=== PATIENT | male | born 1965 | race Two or more races ===

== ENCOUNTER 2020-10-02 14:45 | Inpatient (IN) | payer OTHER ==
[2020-10-02 15:36] VITALS: BMI 26.7
[2020-10-02] MEDS ORDERED: MAG HYDROX/AL HYDROX/SIMETH 30 ML UNIT-DOSE CUP PO PRN (19:19)
[2020-10-02] MEDS ORDERED: MAGNESIUM CITRATE 300 ML BOTTLE PO PRN (19:19)
[2020-10-02] MEDS ORDERED: MAGNESIUM HYDROX 2400MG/30ML ORAL SUSPENSION 30 ML CUP PO PRN (19:19)
[2020-10-02] MEDS ORDERED: ACETAMINOPHEN 325 MG TABLET (FP) PO PRN ×2 (19:19)
[2020-10-02] MEDS ORDERED: IBUPROFEN 400 MG TABLET (FP) PO PRN (19:19)
[2020-10-02] MEDS ORDERED: BISMUTH SUBSALICYLATE 524 MG/30 ML PO PRN (19:19)
[2020-10-02] MEDS ORDERED: ONDANSETRON *ODT* 4 MG TABLET SL PRN (19:19)
[2020-10-02] MEDS ORDERED: METHOCARBAMOL 500 MG TABLET PO PRN (19:19)
[2020-10-02] MEDS ORDERED: hydrOXYzine PAMOATE 25 MG CAPSULE (FP) PO PRN (19:19)
[2020-10-02] MEDS ORDERED: NICOTINE POLACRILEX 2 MG GUM BUC PRN (19:19)
[2020-10-02] MEDS ORDERED: MENTHOL/PHENOL 1 EACH UD MM PRN (19:19)
[2020-10-02] MEDS ORDERED: diazePAM 5 MG TABLET PO PRN (19:22)
[2020-10-02] MEDS ORDERED: diazePAM 5 MG TABLET PO ONE (20:30)
[2020-10-02] MEDS: SULFAMETHOXAZOLE/TRIMETHOPRIM 800MG/160MG D.S. TABLET PO SCH (21:13)
[2020-10-02] MEDS: BACITRACIN 0.9 GM PACKET TP SCH (21:19)
[2020-10-02] MEDS ORDERED: THIAMINE HCL 100 MG TABLET (FP) PO SCH (22:00)
[2020-10-02] MEDS ORDERED: MELATONIN 5 MG TABLETS PO SCH (22:00)
[2020-10-02] MEDS: diazePAM 5 MG TABLET PO SCH (22:52)
[2020-10-03] MEDS: diazePAM 5 MG TABLET PO SCH ×2 (06:02→10:37)
[2020-10-03 09:07] VITALS: BP 107/70; PULSE 73; TEMP 97.1
[2020-10-03] MEDS ORDERED: PRENATAL VITAMINS W/ FOLIC ACID TABLET (FP) PO SCH (10:00)
[2020-10-03] MEDS: SULFAMETHOXAZOLE/TRIMETHOPRIM 800MG/160MG D.S. TABLET PO SCH (10:37)
[2020-10-03] MEDS: BACITRACIN 0.9 GM PACKET TP SCH (10:38)
[2020-10-03 11:12] LABS: HEMATOCRIT 35.1 % (35.4-49); HEMOGLOBIN 11.5 GM/dL (11.7-16.9); MCH 27.8 pg (25.7-33.7); MCHC 32.7 g/dl (32.0-35.9); MEAN PLT VOLUME 8.8 fl (7.5-11.1); PLATELET COUNT 179 10^3/uL (134-434); RBC 4.13 M/mm3 (4.00-5.60); RDW 16.8 % (11.9-15.9); WHITE BLOOD COUNT 4.4 K/mm3 (4.0-10.0)
[2020-10-03 11:15] LABS: ALBUMIN 2.7 g/dl (3.4-5.0); BLOOD UREA NITROGEN 10.1 mg/dL (7-18)
[2020-10-03 11:18] LABS: CREATININE 0.9 mg/dL (0.55-1.3)
[2020-10-03 11:19] LABS: BILIRUBIN,TOTAL 0.5 mg/dL (0.2-1); TOT PROT 7.2 g/dl (6.4-8.2)
[2020-10-04] MEDS ORDERED: diazePAM 5 MG TABLET PO SCH (06:00)
[2020-10-05] MEDS ORDERED: diazePAM 5 MG TABLET PO SCH (06:00)
[2020-10-06] MEDS ORDERED: diazePAM 5 MG TABLET PO ONE (06:00)
== END 2020-10-03 11:20 | disposition left against medical advice (07) | DRG 894 ==
LOC: YASAS 14:45 → Y3N 19:54
PROVIDERS: ADMIT Allergy & Immunology; ATTEND Allergy & Immunology
PROC: HZ2ZZZZ Detoxification Services for Substance Abuse Treatment (ICD-10-PCS; principal; 2020-10-02)
DX: F10.230 Alcohol dependence with withdrawal, uncomplicated (principal); F11.20 Opioid dependence, uncomplicated; F14.20 Cocaine dependence, uncomplicated; F13.20 Sedative, hypnotic or anxiolytic dependence, uncomplicated; F19.282 Other psychoactive substance dependence with psychoactive substance-induced sleep disorder; F16.10 Hallucinogen abuse, uncomplicated; F17.210 Nicotine dependence, cigarettes, uncomplicated; F19.24 Other psychoactive substance dependence with psychoactive substance-induced mood disorder; F32.9 Major depressive disorder, single episode, unspecified
CPT/HCPCS: 36415; 80053; 85027; 86780; C9803; U0003; U0005